=== PATIENT | female | born 1970 | race Caucasian/White ===

== ENCOUNTER 2019-12-24 07:31 | Emergency (ER) | payer BC ==
[2019-12-24 08:17] VITALS: BP 182/109
--- NOTE | 2019-12-24 08:24 | UC ---
Throat Pain/Nasal [place] HPI - HPI Summary HPI Summary: 1. nasal congestion / cough x 1 week, cough is dry , c/o body aches, joint and muscle pain denies any sore throat, no fever, + chills and night sweat 2. elevated blood pressure x 2 weeks ,no hx of hypertension , not on any medications has been having elevated bp every time is at a doctor's office denies any headaches, no visual changes , c/o bilateral numbness of the fingers , and right side facial numbness - History of Current Complaint Chief Complaint: UCRespiratory Stated Complaint: POSS FLU/HIGHBP Time Seen by Provider: 12/24/19 07:41 Hx Obtained From: Patient Hx Last Menstrual Period: 03/17/16 ?: No Onset/Duration: Gradual Onset Pain Intensity: 3 Pain Scale Used: 0-10 Numeric Cough: Nonproductive Associated Signs & Symptoms: Positive: Nasal Discharge. Negative: Wheezing, Sinus Discomfort, Fever, Vomiting, Rash - Allergies/Home Medications Allergies/Adverse Reactions: Allergies Allergy/AdvReac Type Severity Reaction Status Date / Time Sulfa (Sulfonamide Allergy Hives Verified 12/24/19 07:46 Antibiotics) Home Medications: Home Medications Ibuprofen TAB* [Advil TAB*] 600 mg PO Q6H PRN 12/24/19 [History Confirmed ] PMH/Surg Hx/FS Hx/Imm Hx - Additional Past Medical History Additional PMH: IBS - Surgical History Surgical History: None - Family History Known Family History: Positive: Unknown, Hypertension, Diabetes - Social History Alcohol Use: Rare Substance Use Type: Marijuana Smoking Status (MU): Never Smoked Tobacco Have You Smoked in the Last Year: No - Immunization History Hx Tetanus, Diphtheria Vaccination: Yes Vaccination Up to Date: Yes Review of Systems All Other Systems Reviewed And Are Negative: Yes Constitutional: Positive: Chills, Fatigue. Negative: Fever Skin: Positive: Negative Eyes: Positive: Negative ENT: Positive: Nasal Discharge. Negative: Sore Throat Respiratory: Positive: Cough Cardiovascular: Positive: Negative Musculoskeletal: Positive: Arthralgia, Myalgia Neurological: Negative: Headache Is Patient Immunocompromised?: No Physical Exam Triage Information Reviewed: Yes Appearance: Well-Appearing, No Pain Distress, Well-Nourished Vital Signs: Initial Vital Signs Temp 97.9 F 12/24/19 07:40 Pulse 93 12/24/19 07:40 Resp 18 12/24/19 07:40 BP 184/115 12/24/19 07:40 Pulse Ox 100 12/24/19 07:40 Vital Signs Reviewed: Yes Eye Exam: Normal Eyes: Positive: Conjunctiva Clear ENT: Positive: Normal ENT inspection, Hearing grossly normal, Pharynx normal Neck: Positive: Supple, Nontender, No Lymphadenopathy Respiratory: Positive: Chest non-tender, Lungs clear, Normal breath sounds Cardiovascular: Positive: RRR, No Murmur, Pulses Normal Abdominal Exam: Normal Abdomen Description: Positive: Nontender, Soft. Negative: CVA Tenderness (R), CVA Tenderness (L), Distended, Guarding Throat Pain/Nasal Course/Dx - Differential Dx/Diagnosis Provider Diagnosis: Viral illness, Elevated BP without diagnosis of hypertension Discharge ED - Sign-Out/Discharge Documenting (check all that apply): Patient Departure All imaging exams completed and their final reports reviewed: No Studies - Discharge Plan Condition: Stable Disposition: HOME Patient Education Materials: Viral Syndrome (ED), Hypertension (ED) Referrals: Siria Summers NP [Primary Care Provider] - 7 Days Additional Instructions: will check CBC, CMP , TSH, AYAAN please call the office in 2 days for the lab results elevated bp without dx of HTN: cont. with low salt diet, daily walks, monitor your blood pressure daily and keep a log to show your pcp in one week viral illness: cont. with rest, fluid, take Tylenol as needed for body aches and fever - Billing Disposition and Condition Condition: STABLE Disposition: Home
[2019-12-24 11:06] LABS: ABS Lymphocytes 2.3 10^3/ul (1.0-4.8); ABS Monocytes 0.4 10^3/ul (0-0.8); Eosinophil % 0.4 %; Hematocrit 43 % (35-47); Hemoglobin 14.7 g/dL (12.0-16.0); Mean Corpuscular HGB Conc 34 g/dL (31-36); Mean Corpuscular Hemoglobin 29 pg (27-31); Mean Corpuscular Volume 85 fL (80-97); Mean Platelet Volume 7.3 fL (7.4-10.4); Nucleated Red Blood Cells % 0.1; Platelet Count 313 10^3/uL (150-450); Red Blood Count 5.03 10^6 /uL (3.70-4.87); Red Cell Distribution Width 14 % (10-15); White Blood Count 4.8 10^3/uL (3.5-10.8)
[2019-12-24 11:21] LABS: Albumin 4.3 g/dL (3.2-5.2); Albumin/Globulin Ratio 1.5 (1-3); BUN/Creatinine Ratio 18.6 (8-20); Calcium 8.9 mg/dL (8.6-10.3); EGFR African American 84.5 (>60); EGFR Non-African American 69.8 (>60); Globulin 2.8 g/dL (2-4); Potassium 4.1 mmol/L (3.5-5.0); Total Bilirubin 0.3 mg/dL (0.2-1.0); Total Protein 7.1 g/dL (6.4-8.9)
[2019-12-24 14:44] LABS: TSH (Thyroid Stimulating Horm) 4.41 mcIU/mL (0.34-5.60)
--- NOTE | 2019-12-25 07:07 | UC ---
- Progress Note Progress Note: cmp reviewed wnl tsh reviewed wnl no change ljj Course/Dx - Diagnoses Provider Diagnoses: Viral illness, Elevated BP without diagnosis of hypertension Discharge ED - Sign-Out/Discharge Documenting (check all that apply): Post-Discharge Follow Up All imaging exams completed and their final reports reviewed: No Studies - Discharge Plan Condition: Stable Disposition: HOME Patient Education Materials: Viral Syndrome (ED), Hypertension (ED) Referrals: Siria Summers [employer] [Primary Care Provider] - 7 Days Additional Instructions: will check CBC, CMP , TSH, AYAAN please call the office in 2 days for the lab results elevated bp without dx of HTN: cont. with low salt diet, daily walks, monitor your blood pressure daily and keep a log to show your pcp in one week viral illness: cont. with rest, fluid, take Tylenol as needed for body aches and fever - Billing Disposition and Condition Condition: STABLE Disposition: Home
== END 2019-12-24 08:15 | disposition home or self-care (01) ==
LOC: UCCORT 07:31
DX: B34.9 Viral infection, unspecified (principal); R03.0 Elevated blood-pressure reading, without diagnosis of hypertension; R09.81 Nasal congestion; R05 Cough; K58.9 Irritable bowel syndrome, unspecified; R68.83 Chills (without fever); R53.83 Other fatigue; R09.89 Other specified symptoms and signs involving the circulatory and respiratory systems; M79.10 Myalgia, unspecified site; R51 Headache; Z88.2 Allergy status to sulfonamides
CPT/HCPCS: 36415; 80053; 84443; 85025; 99202; G0463